=== PATIENT | female | born 2000 | race Two or more races ===

== ENCOUNTER 2025-08-06 17:20 | Emergency (ER) | payer BC ==
[~2025-08-06] VITALS: Ht 165.1 cm; Wt 53.5 kg
[2025-08-06] MEDS ORDERED: ONDANSETRON HCL/PF 4 MG/2 ML VIAL ONE (17:46)
[2025-08-06] MEDS ORDERED: LACTULOSE 10 G/15 ML UDC (PYXIS) ONE (17:47)
[2025-08-06] MEDS: IV NS 0.9% 500 ML BAG IV ONE (17:58)
[2025-08-06] MEDS: ONDANSETRON HCL/PF 4 MG/2 ML VIAL IVP ONE (17:58)
[2025-08-06 18:05] LABS: PLATELET COUNT (AUTO) 186 K/uL (150-450); RED BLOOD CELL COUNT(AUTO) 4.39 MIL/uL (4.0-5.2); RED CELL DISTRIBUTION WIDTH 15.4 % (11.5-15.0); WHITE BLOOD COUNT (AUTO) 3.4 K/uL (4.3-11.0)
[2025-08-06] MEDS: LACTULOSE 10 G/15 ML UDC (PYXIS) GT ONE (18:05)
[2025-08-06 18:12] LABS: CALCIUM, SERUM 9.3 mg/dL (8.5-10.1); CREATININE 0.8 mg/dL (0.6-1.3); SODIUM SERUM 141.0 mmol/L (136-145); UREA NITROGEN, BLOOD 13.0 mg/dL (7-18)
[2025-08-06 18:22] LABS: INR 1.05 (0.91-1.10)
[2025-08-06] MEDS ORDERED: LACT10SO58 PO (18:49)
[2025-08-06] MEDS ORDERED: ONDA4TAB5 PO (18:49)
[2025-08-06 19:01] LABS: APPEARANCE,URINE CLEAR (CLEAR); BLOOD, URINE TRACE-INTA Ery/uL (NEGATIVE); LEUKOCYTE ESTERASE ,URINE NEGATIVE (NEGATIVE); NITRITE, URINE NEGATIVE (NEGATIVE); PREGNANCY TEST URINE QUAL NEGATIVE (NEGATIVE); UGLUCOSE NEGATIVE (NEGATIVE)
[2025-08-06 19:14] LABS: ADD URINE CULTURE NO; SQUAMOUS EPITHELIAL CELL,UR Many /HPF (None Seen)
[2025-08-06 19:46] VITALS: BP 120/79; TEMP 99.4; O2SAT 98
== END 2025-08-06 19:47 | disposition home or self-care (01) ==
LOC: ER 17:20
DX: K59.00 Constipation, unspecified (principal); R10.32 Left lower quadrant pain; R11.0 Nausea; Z86.0100 Personal history of colon polyps, unspecified
CPT/HCPCS: 99283; 96374; 96361; 85025; 80048; 83690; 84703; 81001; 36415; 85730; J2405; J7040